=== PATIENT | male | born 1995 | race Caucasian/White ===

== ENCOUNTER 2019-05-19 19:27 | Emergency (ER) | payer SELFPAY ==
[2019-05-19] MEDS ORDERED: AMOXICILLIN 250 MG CAPSULE PO STA (21:05)
[2019-05-19] MEDS ORDERED: HYDROcod/ACET 5/325 Prepack 4 PO STA (21:05)
--- NOTE | 2019-05-19 21:07 | ED Physician Documentation ---
PD HPI HEENT - Stated complaint Stated Complaint: DENTAL PAIN - Chief complaint Chief Complaint: Heent - History obtained from History obtained from: Patient - History of Present Illness Timing - onset: Today (This is a young man who has not seen a dentist in many having ongoing tooth pain on the right for the last month and a half which was acutely worse today and severe today despite taking ibuprofen and Orajel. No fevers.) Review of Systems Constitutional: reports: Reviewed and negative Nose: reports: Reviewed and negative Throat: reports: Dental pain / toothache, Reviewed and negative. denies: Sore throat PD PAST MEDICAL HISTORY - Past Medical History Past Medical History: No Cardiovascular: None Respiratory: None Neuro: None Endocrine/Autoimmune: None GI: None : None HEENT: None Psych: None Musculoskeletal: None Derm: None - Past Surgical History Past Surgical History: No - Present Medications Home Medications: Ambulatory Orders Medication Instructions Recorded Confirmed Amoxicillin 500 mg PO TID #30 capsule 05/19/19 Hydrocodone/Acetaminophen 1 - 2 each PO Q6H PRN #14 tablet 05/19/19 [Hydrocodon-Acetaminophen 5-325] - Allergies Allergies/Adverse Reactions: Allergies Allergy/AdvReac Type Severity Reaction Status Date / Time No Known Drug Allergies Allergy Verified 03/02/16 00:27 - Social History Does the pt smoke?: Yes Smoking Status: Current every day smoker Does the pt drink ETOH?: Yes Does the pt have substance abuse?: No - Immunizations Immunizations are current?: Yes - POLST Patient has POLST: No PD ED PE NORMAL - Vitals Vital signs reviewed: Yes - General General: Alert and oriented X 3, No acute distress - HEENT HEENT: Other (He actually generally does not have that bad of dentition. There is a large cavity in the last molar on the left maxilla and his wisdom teeth are impacted. There is no trismus. No facial bony tenderness.) - Neck Neck: Supple, no meningeal sign, No bony TTP - Neuro Neuro: Alert and oriented X 3, Normal speech Results - Vitals Vitals: Vital Signs - 24 hr 05/19/19 05/19/19 19:31 20:31 Temperature 36.5 C Heart Rate 86 Respiratory 14 16 Rate Blood Pressure 119/68 O2 Saturation 98 Oxygen O2 Source Room air PD MEDICAL DECISION MAKING - ED course ED course: The [facility] prescription monitoring program was queried with regard to this patient. No concerning findings were found. Departure - Departure Disposition: 01 Home, Self Care Clinical Impression: Pain due to dental caries Condition: Good Record reviewed to determine appropriate education?: Yes Instructions: ED Tooth Pain Prescriptions: Amoxicillin 500 mg PO TID #30 capsule Hydrocodone/Acetaminophen [Hydrocodon-Acetaminophen 5-325] 1 - 2 each PO Q6H PRN #14 tablet PRN Reason: pain Comments: It is very important that you follow-up with a dentist. When it comes to dental problems like yours, the emergency department can only offer a short-term solution to your long-term problem. A couple of low cost options for dental care include: [facility] in [place], calls [phone] for an appointment Or [facility] in [place], call [phone] for an appointment. Do not drink or drive while taking narcotic pain medication. Note that many narcotic pain relievers also contain Tylenol/acetaminophen. Please ensure that your total dose of acetaminophen from all sources does not exceed 3 g (3000 mg) per day. You may get constipated while on this medication. Take a stool softener such as Colace twice a day while you are on it. Also add an [id number] laxative such as senna or MiraLAX on any day that you do not have a bowel movement. If you received a narcotic pain medication or sedative while in the emergency department, do not drive for the next 24 hours.
[2019-05-19 21:10] VITALS: BP 136/69
== END 2019-05-19 21:14 | disposition home or self-care (01) ==
LOC: ED 19:27
DX: K02.9 Dental caries, unspecified (principal); F17.200 Nicotine dependence, unspecified, uncomplicated
CPT/HCPCS: 99282; 99283; A9270

== ENCOUNTER 2019-07-06 20:28 | Emergency (ER) | payer MEDICAID ==
[2019-07-06 20:35] VITALS: BP 154/67
--- NOTE | 2019-07-06 20:43 | ED Physician Documentation ---
PD HPI HEENT - Stated complaint Stated Complaint: DENTAL PAIN - Chief complaint Chief Complaint: Heent - History obtained from History obtained from: Patient - History of Present Illness Timing - onset: Today Timing - details: Gradual onset Location: Tooth Improves: Ice Associated symptoms: No: Fever, Unable to swallow Similar symptoms before: Treatment (Antibiotics) Recently seen: Not recently seen - Additional information Additional information: Is a 24-year-old presents with complaints that he is having pain in the right mandibular and maxillary ridges. Started today and he applied ice which helped a little bit. He did not take any medications for the pain. He had a similar episode 2 months ago and was placed on antibiotics and it got better for a while. He was unable to get into see a dentist because his medical was not active. When he tried to see the dentist today they told him he could not get an appointment until August. He just wants something to take the pain away until then. Denies drainage in the tooth and no fever. No swelling. Review of Systems Constitutional: denies: Fever Throat: reports: Dental pain / toothache Skin: denies: Rash PD PAST MEDICAL HISTORY - Past Medical History Cardiovascular: None Respiratory: None Neuro: None Endocrine/Autoimmune: None GI: None : None HEENT: None Psych: None Musculoskeletal: None Derm: None - Past Surgical History Past Surgical History: No - Present Medications Home Medications: Ambulatory Orders Medication Instructions Recorded Confirmed Amoxicillin 500 mg PO TID #30 capsule 05/19/19 Hydrocodone/Acetaminophen 1 - 2 each PO Q6H PRN #14 tablet 05/19/19 [Hydrocodon-Acetaminophen 5-325] Amoxicillin 500 mg PO TID #30 capsule 07/06/19 Chlorhexidine Gluconate [Peridex] 15 ml MM BID #150 mouthwash 07/06/19 Ibuprofen [Motrin] 600 mg PO Q6H PRN #30 tab 07/06/19 - Allergies Allergies/Adverse Reactions: Allergies Allergy/AdvReac Type Severity Reaction Status Date / Time No Known Drug Allergies Allergy Verified 03/02/16 00:27 - Social History Does the pt smoke?: Yes Smoking Status: Current some day smoker Does the pt drink ETOH?: Yes Does the pt have substance abuse?: No - Immunizations Immunizations are current?: Yes - POLST Patient has POLST: No PD ED PE NORMAL - Vitals Vital signs reviewed: Yes - General General: Alert and oriented X 3, No acute distress, Well developed/nourished - HEENT HEENT: Atraumatic, PERRL, EOMI, Moist mucous membranes, Other (The right most posterior maxillary molar is broken. Patient has extensive inflammatory changes at the gumline consistent with gingivitis. There is no external swelling.) - Respiratory Respiratory: No respiratory distress Results - Vitals Vitals: Vital Signs - 24 hr 07/06/19 20:33 Temperature 36.9 C Heart Rate 89 Respiratory 18 Rate Blood Pressure 154/67 H O2 Saturation 99 Oxygen O2 Source Room air PD MEDICAL DECISION MAKING - ED course Complexity details: d/w patient ED course: Patient is placed on amoxicillin 3 times a day for 10 days. Given prescription for Motrin 600 mg every 6 hours as needed for pain with food. Peridex oral rinse twice a day. He is counseled that it is imperative he follow-up with a dentist for definitive repair. Departure - Departure Disposition: 01 Home, Self Care Clinical Impression: Pain, dental, Gingivitis Condition: Good Instructions: ED Tooth Pain Follow-Up: [facility] [Provider Group] Prescriptions: Amoxicillin 500 mg PO TID #30 capsule Chlorhexidine Gluconate [Peridex] 15 ml MM BID #150 mouthwash Ibuprofen [Motrin] 600 mg PO Q6H PRN #30 tab PRN Reason: Pain Comments: Use the Peridex mouth rinse twice a day. Take the amoxicillin 3 times a day as prescribed. May take the Motrin up to 4 times a day as needed for pain. Take that medication with food. It is absolutely imperative that you follow-up with the dentist to have the tooth fixed.
== END 2019-07-06 20:53 | disposition home or self-care (01) ==
LOC: ED 20:28
DX: K08.89 Other specified disorders of teeth and supporting structures (principal); K05.10 Chronic gingivitis, plaque induced; F17.200 Nicotine dependence, unspecified, uncomplicated
CPT/HCPCS: 99282; 99283